=== PATIENT | female | born 1990 | race Caucasian/White ===

== ENCOUNTER 2018-11-24 03:59 | Emergency (ER) | payer BC ==
[2018-11-24 04:01] VITALS: BP 128/91
[2018-11-24] MEDS ORDERED: ALBU8.5H IH (04:07)
[2018-11-24] MEDS ORDERED: oxyCODON/ACET (*)5/325MG (CII) 1 TAB TAB PO ONE (04:10)
[2018-11-24] MEDS ORDERED: AMOXICILLIN 500 MG CAP PO ONE (04:10)
[2018-11-24] MEDS ORDERED: OXYC-865 PO (04:12)
[2018-11-24] MEDS ORDERED: AMOX-362 PO (04:12)
[2018-11-24] MEDS ORDERED: oxyCODONE/ACETAMIN 5/325MG TH 2 TAB/BOTTLE PO ONE (04:15)
--- NOTE | 2018-11-24 04:15 | ER Report ---
History and Physical Time Seen By MD: 04:08 Hx. of Stated Complaint: patient states she has been having really bad pain in her back lower left molar since am yesterday. patient states she needs a root canal in tooth, but she just moved HPI/ROS CHIEF COMPLAINT: Dental pain HISTORY OF PRESENT ILLNESS: The patient is a 28-year-old female who recently moved to [place]. She has a known molar on the left side of the mandible that was told she would need a root canal. She was pain-free until early this morning when she developed pain shooting into her left jaw. She denies any trauma. She denies any ear pain. She denies fevers or chills. She denies any known drug allergies. He throat pain. She denies congestion. She denies neck pain REVIEW OF SYSTEMS: ENT: Dental pain Respiratory: No cough, no dyspnea. Cardiovascular: No chest pain, no palpitations. Gastrointestinal: No vomiting, no abdominal pain. Musculoskeletal: No back pain. Allergies: Coded Allergies: No Known Drug Allergies (Unverified , 11/24/18) Home Meds Active Scripts Oxycodone Hcl/Acetaminophen (PERCOCET 5-325 MG TABLET) 1 Each Tablet, 1 EACH PO Q4H for PAIN, #20 TAB 0 Refills Prov:EITAN ANN MD 11/24/18 Amoxicillin (AMOXICILLIN) 500 Mg Capsule, 2 CAP PO Q12H, #20 CAPSULE 0 Refills TAKE ONE CAPSULE BY MOUTH EVERY 8 HOURS Prov:EITAN ANN MD 11/24/18 Reported Medications Albuterol Sulfate 90 Mcg/Act (PROAIR HFA 90 MCG/ACT) 8.5 Gm Hfa.aer.ad, 2 PUFF IH Q4-6H, INHALER 11/24/18 Past Medical/Surgical History Reactive airways disease Hx Substance Use Disorder: No Constitutional Vital Sign - Last 24 Hours 11/24/18 04:01 Temp 98.4 Pulse 81 Resp 16 B/P (MAP) 128/91 Pulse Ox 94 O2 Delivery Room Air Physical Exam General Appearance: Alert, no distress. ENT, Mouth: Ears: Tympanic membranes are normal. Nose: No bleeding. Mouth: Mucous membranes are moist. Throat: No erythema or exudates there is no tonsillar hypertrophy and uvula is midline. Dental: No evidence of gingival swelling or evidence of abscess or fluctuance. Patient appears to have an impacted wisdom tooth on the left mandibular molar. Musculoskeletal: Neck is supple non tender, no adenopathy. Skin: Warm and dry, no rashes. [ ] Medical Decision Making ED Course/Re-evaluation ED Course 11/24/2018 4:10:12 am and at this time will be oral pain medication antibiotics and referral to a dentist. Decision to Disposition Date: November 24, 2018 Decision to Disposition Time: 04:10 Depart Departure Latest Vital Signs Vital Signs Date Time Temp Pulse Resp B/P (MAP) Pulse Ox O2 Delivery O2 Flow Rate FiO2 11/24/18 04:01 98.4 81 16 128/91 94 Room Air Impression: Primary Impression: Pain, dental Condition: Improved Disposition: HOME OR SELF-CARE New Scripts Oxycodone Hcl/Acetaminophen (PERCOCET 5-325 MG TABLET) 1 Each Tablet 1 EACH PO Q4H for PAIN, #20 TAB 0 Refills Prov: EITAN ANN MD 11/24/18 Amoxicillin (AMOXICILLIN) 500 Mg Capsule 2 CAP PO Q12H, #20 CAPSULE 0 Refills TAKE ONE CAPSULE BY MOUTH EVERY 8 HOURS Prov: EITAN ANN MD 11/24/18 Patient Instructions: Toothache (ED) Additional Instructions: [facility] [address] [place] [id number] Call to schedule an appointment May take 1 Percocet every 4 hours as needed for pain. EITAN ANN MD November 24, 2018 04:15
== END 2018-11-24 04:30 | disposition home or self-care (01) ==
LOC: ER 04:15
DX: K08.89 Other specified disorders of teeth and supporting structures (principal)
CPT/HCPCS: 99283